=== PATIENT | male | born 1960 | race Caucasian/White ===

== ENCOUNTER 2019-10-28 23:17 | Emergency (ER) | payer OTHER ==
[2019-10-28] MEDS ORDERED: Sodium Chloride 0.9% 10 ML Syringe FLUSH PRN (23:33)
[2019-10-28] MEDS ORDERED: Sodium Chloride 0.9% 1,000 ML IV SCH (23:45)
--- NOTE | 2019-10-29 00:15 | EDM.PDOC ---
ED HPI GENERAL MEDICAL PROBLEM - General Chief Complaint: Abdominal Pain Stated Complaint: SIDE PAIN Time Seen by Provider: 10/28/19 23:28 Source of Information: Reports: Patient History Limitations: Reports: No Limitations - History of Present Illness INITIAL COMMENTS - FREE TEXT/NARRATIVE: The patient presents with right flank and right abdominal pain. This all started on Saturday. He was shoveling grain before and he thought he strained his back. He went to see Dr Reinoso and he put him on some naprosyn and flexeril. He has not gotten any better. He has pain to the right lower abdomen now. He has been taking his temp and his temp has been creeping up. He has no cough, congestion, runny nose, chest pain, shortness of breath, dysuria, hematuria or diarrhea. He still has his appendix and gallbladder. Onset: Gradual Duration: Day(s): Location: Reports: Abdomen, Back Quality: Reports: Sharp Severity: Moderate Improves with: Reports: None Worsens with: Reports: None Associated Symptoms: Denies: Chest Pain, Cough, Fever/Chills, Headaches, Nausea/ Vomiting, Shortness of Breath Right Lower Abdomen Pain Score (Numeric/FACES): 5 - Related Data Allergies Allergy/AdvReac Type Severity Reaction Status Date / Time oxycodone Allergy Nausea and Verified 10/28/19 23:39 Vomiting Past Medical History Musculoskeletal History: Reports: Fracture, Other (See Below) Other Musculoskeletal History: bila ankles, shoulder - Past Surgical History Musculoskeletal Surgical History: Reports: Shoulder Surgery Social & Family History - Tobacco Use Smoking Status *Q: Never Smoker Second Hand Smoke Exposure: No - Caffeine Use Caffeine Use: Reports: Coffee - Recreational Drug Use Recreational Drug Use: No ED ROS GENERAL - Review of Systems Review Of Systems: See Below Constitutional: Reports: No Symptoms HEENT: Reports: No Symptoms Respiratory: Reports: No Symptoms Cardiovascular: Reports: No Symptoms Endocrine: Reports: No Symptoms GI/Abdominal: Reports: Abdominal Pain. Denies: Nausea, Vomiting : Reports: Flank Pain ED EXAM, GI/ABD - Physical Exam Exam: See Below Exam Limited By: No Limitations General Appearance: Alert, No Apparent Distress Ears: Normal External Exam Nose: Normal Inspection Head: Atraumatic, Normocephalic Neck: Normal Inspection Respiratory/Chest: No Respiratory Distress, Lungs Clear, Normal Breath Sounds Cardiovascular: Regular Rate, Rhythm, No Edema, No Murmur GI/Abdominal Exam: Soft, Non-Tender, No Organomegaly, No Mass Back Exam: Normal Inspection Extremities: Normal Inspection Course - Vital Signs Last Recorded V/S: Last Vital Signs Temp 98.7 F 10/28/19 23:33 Pulse 80 10/28/19 23:33 Resp 20 10/28/19 23:33 BP 138/96 H 10/28/19 23:33 Pulse Ox 97 10/28/19 23:33 - Orders/Labs/Meds Orders: Active Orders 24 hr Category Date Time Status Peripheral IV Care [RC] . DIRECTED Care 10/28/19 23:34 Active Abdomen Pelvis w Cont [CT] Stat Exams 10/29/19 01:01 Taken Abdomen Pelvis wo Cont [CT] Stat Exams 10/28/19 23:33 Taken CULTURE BLOOD [BC] Stat Lab 10/29/19 01:15 Received CULTURE BLOOD [BC] Stat Lab 10/29/19 01:25 Received CULTURE URINE [RM] Stat Lab 10/29/19 00:09 Received Piperacillin/Tazobactam [Piperacil-Tazobact] 4.5 gm Med 10/29/19 03:15 Active Sodium Chloride 0.9% [Normal Saline] 100 ml IV ONETIME Sodium Chloride 0.9% [Normal Saline] 1,000 ml Med 10/28/19 23:45 Active IV ASDIRECTED Sodium Chloride 0.9% [Saline Flush] Med 10/28/19 23:33 Active 10 ml FLUSH ASDIRECTED PRN Blood Culture x2 Reflex Set [OM.PC] Stat Oth 10/29/19 01:01 Ordered Peripheral IV Insertion Adult [OM.PC] Stat Oth 10/28/19 23:33 Ordered Medication Orders Sodium Chloride (Normal Saline) 1,000 mls @ 125 mls/hr IV ASDIRECTED KATIA Last Admin: 10/28/19 23:48 Dose: 125 mls/hr Piperacillin Sod/Tazobactam (Sod 4.5 gm/ Sodium Chloride) 100 mls @ 25 mls/hr IV ONETIME ONE Stop: 10/29/19 07:14 Sodium Chloride (Saline Flush) 10 ml FLUSH ASDIRECTED PRN PRN Reason: Keep Vein Open Last Admin: 10/28/19 23:49 Dose: 10 ml Labs: Laboratory Tests 10/28/19 10/28/19 10/29/19 Range/Units 23:45 23:45 00:09 WBC 10.16 H (4.23-9.07) K/mm3 RBC 4.12 L (4.63-6.08) M/mm3 Hgb 12.4 L (13.7-17.5) gm/dl Hct 37.4 L (40.1-51.0) % MCV 90.8 (79.0-92.2) fl MCH 30.1 (25.7-32.2) pg MCHC 33.2 (32.2-35.5) g/dl RDW Std Deviation 43.0 (35.1-43.9) fL Plt Count 189 (163-337) K/mm3 MPV 11.3 (9.4-12.3) fl Neut % (Auto) 67.2 (34.0-67.9) % Lymph % (Auto) 15.6 L (21.8-53.1) % Wood % (Auto) 14.4 H (5.3-12.2) % Eos % (Auto) 2.5 (0.8-7.0) Baso % (Auto) 0.1 (0.1-1.2) % Neut # (Auto) 6.84 H (1.78-5.38) K/mm3 Lymph # (Auto) 1.58 (1.32-3.57) K/mm3 Wood # (Auto) 1.46 H (0.30-0.82) K/mm3 Eos # (Auto) 0.25 (0.04-0.54) K/mm3 Baso # (Auto) 0.01 (0.01-0.08) K/mm3 Manual Slide Review Abnormal smear Sodium 139 (136-145) mEq/L Potassium 4.0 (3.5-5.1) mEq/L Chloride 105 (98-107) mEq/L Carbon Dioxide 26 (21-32) mEq/L Anion Gap 12.0 (5-15) BUN 15 (7-18) mg/dL Creatinine 1.3 (0.7-1.3) mg/dL Est Cr Clr Drug Dosing 57.73 mL/min Estimated GFR (MDRD) 56 (>60) mL/min BUN/Creatinine Ratio 11.5 L (14-18) Glucose 106 (80-115) mg/dL Lactic Acid (0.4-2.0) mmol/L Calcium 8.6 (8.5-10.1) mg/dL Total Bilirubin 0.5 (0.2-1.0) mg/dL AST 15 (15-37) U/L ALT 23 (16-63) U/L Alkaline Phosphatase 82 (46-116) U/L Total Protein 6.4 (6.4-8.2) g/dl Albumin 2.9 L (3.4-5.0) g/dl Globulin 3.5 gm/dL Albumin/Globulin Ratio 0.8 L (1-2) Lipase 650 H (73-393) U/L Urine Color Light yellow (Yellow) Urine Appearance Clear (Clear) Urine pH 6.5 (5.0-8.0) Ur Specific [place] 1.020 (1.005-1.030) Urine Protein 1+ H (Negative) Urine Glucose (UA) Negative (Negative) Urine Ketones Negative (Negative) Urine Occult Blood 2+ H (Negative) Urine Nitrite Negative (Negative) Urine Bilirubin Negative (Negative) Urine Urobilinogen 2.0 H (0.2-1.0) Ur Leukocyte Esterase Trace H (Negative) U Hyaline Cast (Auto) 0-5 (0-5) /lpf Urine RBC 5-10 H (0-5) /hpf Urine WBC 5-10 H (0-5) /hpf Ur Epithelial Cells Not seen (0-5) /hpf Urine Bacteria Few (FEW) /hpf Urine Mucus Few (FEW) /hpf 10/29/19 Range/Units 01:25 WBC (4.23-9.07) K/mm3 RBC (4.63-6.08) M/mm3 Hgb (13.7-17.5) gm/dl Hct (40.1-51.0) % MCV (79.0-92.2) fl MCH (25.7-32.2) pg MCHC (32.2-35.5) g/dl RDW Std Deviation (35.1-43.9) fL Plt Count (163-337) K/mm3 MPV (9.4-12.3) fl Neut % (Auto) (34.0-67.9) % Lymph % (Auto) (21.8-53.1) % Wood % (Auto) (5.3-12.2) % Eos % (Auto) (0.8-7.0) Baso % (Auto) (0.1-1.2) % Neut # (Auto) (1.78-5.38) K/mm3 Lymph # (Auto) (1.32-3.57) K/mm3 Wood # (Auto) (0.30-0.82) K/mm3 Eos # (Auto) (0.04-0.54) K/mm3 Baso # (Auto) (0.01-0.08) K/mm3 Manual Slide Review Sodium (136-145) mEq/L Potassium (3.5-5.1) mEq/L Chloride (98-107) mEq/L Carbon Dioxide (21-32) mEq/L Anion Gap (5-15) BUN (7-18) mg/dL Creatinine (0.7-1.3) mg/dL Est Cr Clr Drug Dosing mL/min Estimated GFR (MDRD) (>60) mL/min BUN/Creatinine Ratio (14-18) Glucose (80-115) mg/dL Lactic Acid 0.6 (0.4-2.0) mmol/L Calcium (8.5-10.1) mg/dL Total Bilirubin (0.2-1.0) mg/dL AST (15-37) U/L ALT (16-63) U/L Alkaline Phosphatase (46-116) U/L Total Protein (6.4-8.2) g/dl Albumin (3.4-5.0) g/dl Globulin gm/dL Albumin/Globulin Ratio (1-2) Lipase (73-393) U/L Urine Color (Yellow) Urine Appearance (Clear) Urine pH (5.0-8.0) Ur Specific [place] (1.005-1.030) Urine Protein (Negative) Urine Glucose (UA) (Negative) Urine Ketones (Negative) Urine Occult Blood (Negative) Urine Nitrite (Negative) Urine Bilirubin (Negative) Urine Urobilinogen (0.2-1.0) Ur Leukocyte Esterase (Negative) U Hyaline Cast (Auto) (0-5) /lpf Urine RBC (0-5) /hpf Urine WBC (0-5) /hpf Ur Epithelial Cells (0-5) /hpf Urine Bacteria (FEW) /hpf Urine Mucus (FEW) /hpf Meds: Medications Generic Name Dose Route Start Last Admin Trade Name Freq PRN Reason Stop Dose Admin Sodium Chloride 1,000 mls @ 125 mls/hr 10/28/19 23:45 10/28/19 23:48 Normal Saline IV 125 mls/hr ASDIRECTED KATIA Administration Piperacillin Sod/Tazobactam 100 mls @ 25 mls/hr 10/29/19 03:15 Sod 4.5 gm/ Sodium Chloride IV 10/29/19 07:14 ONETIME ONE Sodium Chloride 10 ml 10/28/19 23:33 10/28/19 23:49 Saline Flush FLUSH 10 ml ASDIRECTED PRN Administration Keep Vein Open - Re-Assessments/Exams Free Text/Narrative Re-Assessment/Exam: 10/29/19 00:15 I ordered an IV NS at 125ml/hr, labs, UA and a CT of his abdomen and pelvis without contrast. 10/29/19 03:09 His WBC was elevated at 10.16. His CMP is negative. His lipase is elevated at 650. His UA shows leukocyte esterase, RBCs, WBCs and few bacteria. 10/29/19 03:[address] shows mild right hydronephrosis. No obstructing renal or ureteral stone is identified. Right pyelitis. Findings could be consistent with recently passed stone versus infection or a noncalcified obstructing ureteral/UVJ lesion/ stricture. Recommend clinical correlation and correlation with urinalysis/ culture. Right perinephric stranding. Increased stranding/density around the right renal pelvis. Finding can represent sequela prior obstruction or previous /current infection. Recommend further evaluation with IV contrast with nephrographic and delayed excretory images. Possible fluid tracking along the right psoas muscle with possible right psoas infection/abscess. Further evaluation with IV contrast. No CT findings of acute appendicitis. Colonic diverticulosis without Ct findings of acute diverticulitis. I ordered urine culture, blood cultures, lactic acid, rocephin 2 grams IV and a CT with IV contrast. The IV contrast CT shows wedge-shaped regions of decreased right renal upper pole cortical attenuation with associated perinephric stranding. Findings likely consistent with acute pyelonephritis. Right pyelitis/ureteritis. Edema/ stranding around the right renal pelvis. Right retroperitoneal abscess anterior to the right psoas muscle extending from the level of L2 to L4. It measures 2.7 X 1[address] findings of acute appendicitis. Incomplete urinary bladder distention with prominent wall. Correlation with urinalysis for cystitis. Additional nonemergent CT findings above. I called [facility] in [place] and talked with the hospitalist Dr Price and he accepted the patient. He did want some zosyn started so I ordered that. 10/29/19 03:33 The patient did tell me that he got knocked over by a cow a few weeks ago. His back hurt after that. He was feeling better before this started. Departure - Departure Time of Disposition: 03:35 Disposition: DC/Tfer to Acute Hospital 02 Condition: Fair Clinical Impression: Pyelonephritis, Pyelitis, Ureteritis, Retroperitoneal abscess UTI (urinary tract infection) Qualifiers: Urinary tract infection type: acute cystitis Hematuria presence: without hematuria Qualified Code(s): N30.00 - Acute cystitis without hematuria Pancreatitis Qualifiers: Chronicity: acute Pancreatitis type: other Acute pancreatitis complication: no infection or necrosis Qualified Code(s): K85.80 - Other acute pancreatitis without necrosis or infection - Discharge Information Referrals: Mickey Jameson MD [Primary Care Provider] - Forms: ED Department Discharge Sepsis Event Note - Evaluation Sepsis Screening Result: No Definite Risk - Focused Exam Vital Signs: Vital Signs Temp Pulse Resp BP Pulse Ox 10/28/19 23:33 98.7 F 80 20 138/96 H 97 Date Exam was Performed: 10/29/19 Time Exam was Performed: 03:22 - My Orders Last 24 Hours: My Active Orders 10/28/19 23:33 Abdomen Pelvis wo Cont [CT] Stat Sodium Chloride 0.9% [Saline Flush] 10 ml FLUSH ASDIRECTED PRN Peripheral IV Insertion Adult [OM.PC] Stat 10/28/19 23:34 Peripheral IV Care [RC] . DIRECTED 10/28/19 23:45 Sodium Chloride 0.9% [Normal Saline] 1,000 ml IV ASDIRECTED 10/29/19 00:09 CULTURE URINE [RM] Stat 10/29/19 01:01 Abdomen Pelvis w Cont [CT] Stat Blood Culture x2 Reflex Set [OM.PC] Stat 10/29/19 01:15 CULTURE BLOOD [BC] Stat 10/29/19 01:25 CULTURE BLOOD [BC] Stat 10/29/19 03:15 Piperacillin/Tazobactam [Piperacil-Tazobact] 4.5 gm Sodium Chloride 0.9% [ Normal Saline] 100 ml IV ONETIME - Assessment/Plan Last 24 Hours: My Active Orders 10/28/19 23:33 Abdomen Pelvis wo Cont [CT] Stat Sodium Chloride 0.9% [Saline Flush] 10 ml FLUSH ASDIRECTED PRN Peripheral IV Insertion Adult [OM.PC] Stat 10/28/19 23:34 Peripheral IV Care [RC] . DIRECTED 10/28/19 23:45 Sodium Chloride 0.9% [Normal Saline] 1,000 ml IV ASDIRECTED 10/29/19 00:09 CULTURE URINE [RM] Stat 10/29/19 01:01 Abdomen Pelvis w Cont [CT] Stat Blood Culture x2 Reflex Set [OM.PC] Stat 10/29/19 01:15 CULTURE BLOOD [BC] Stat 10/29/19 01:25 CULTURE BLOOD [BC] Stat 10/29/19 03:15 Piperacillin/Tazobactam [Piperacil-Tazobact] 4.5 gm Sodium Chloride 0.9% [ Normal Saline] 100 ml IV ONETIME
[2019-10-29] MEDS ORDERED: Piperacillin/Tazobactam 4.5 GM in Sodium Chloride 0.9% 100 ML IV ONE (03:15)
--- NOTE | 2019-10-29 08:14 | CT ---
CT abdomen and pelvis Technique: Multiple axial sections were obtained from above the dome of the diaphragm inferiorly through the pubic symphysis. Intravenous and oral contrast not utilized. Study performed as a ureteral stone protocol. Findings: Inflammatory change is identified around the right kidney. Collecting system of the right kidney is slightly prominent. No ureteral dilatation or ureteral stone is seen. No bladder calculi are in. No calcification is seen within either kidney. Hypodense fluid type material seen along the psoas muscle on the right side. Slight atelectasis is noted within the right lung base. Liver shows no focal abnormality. Spleen appears within normal limits. Adrenal glands show no nodule. Pancreas is within normal limits. Gallbladder contains no calcified gallstones. Aorta shows no aneurysm. No retroperitoneal adenopathy or mesenteric abnormalities are seen. Appendix is seen which is normal. No pelvic mass or adenopathy is seen. Bone window settings were reviewed which shows scattered degenerative change within the spine without acute osseous finding being seen. Impression: 1. Inflammatory change around the right kidney most likely due to pyelonephritis since no ureteral stone is seen. Collecting system of the right kidney is slightly prominent most likely relating to stasis from infection. 2. Small amount of fluid along the right psoas muscle and difficult to exclude infection. 3. Other findings believed to be nonacute as noted above. Diagnostic code #3 Agree with preliminary report issued by [facility] ([facility] preliminary report dictated on 10/29/19, 1:34 AM Central Time) Study was dictated in MDT
--- NOTE | 2019-10-29 08:14 | CT ---
CT abdomen and pelvis Technique: Multiple axial sections were obtained from above the dome of the diaphragm inferiorly through the pubic symphysis. Intravenous contrast was utilized. Delayed images were also obtained through the abdomen and pelvis. Comparison: Previous CT abdomen and pelvis study performed as a noncontrast exam with a date of 10/28/19. Findings: Mild right basilar atelectasis is noted. Liver contains no focal abnormality. Spleen appears within normal limits. Gallbladder contains no calcified gallstones. Pancreas shows no abnormality. Adrenal glands show no nodule. Aorta shows no aneurysm. No retroperitoneal adenopathy is seen. Bladder is slightly thick-walled which is believed to be due to under distention since bladder wall appears more normal on earlier study when better distended. Slightly diminished enhancement of the right kidney is seen as compared to the left kidney believed to represent changes of pyelonephritis. Inflammatory change is also noted around the right kidney compatible with pyelonephritis. Right sided collecting system is mildly prominent. This is most likely due to stasis from infection. Delayed images shows contrast throughout the ureters with no ureteral obstruction. Bladder shows contrast on delayed images. Fluid collection is seen along the lateral side of the psoas muscle on the right side. This fluid collection has a length of 6.7 cm with thickness of approximately 1 cm. Differential includes small urinoma versus small abscess. Left kidney shows no abnormality. Appendix is seen and is normal. Bony structures remain unchanged from previous study. Impression: 1. Findings compatible with right-sided pyelonephritis. Mild dilatation of the collecting system of the right kidney compatible with stasis from infection. 2. Small urinoma versus small abscess along the right psoas muscle with measurements as noted above. 3. No other acute findings are seen on CT study of the abdomen and pelvis performed with contrast. Diagnostic code #3 Agree with preliminary report issued by [facility] ([facility] preliminary report dictated on 10/29/19, 3:54 AM Central Time) Study was dictated in MDT
== END 2019-10-29 03:45 ==
LOC: JD.ED 23:17
DX: N12 Tubulo-interstitial nephritis, not specified as acute or chronic (principal); N30.00 Acute cystitis without hematuria; K68.19 Other retroperitoneal abscess; K85.80 Other acute pancreatitis without necrosis or infection; Z88.5 Allergy status to narcotic agent
CPT/HCPCS: 36415; 74176; 74177; 80053; 81001; 83605; 83690; 85025; 87040; 87086; 96361; 96374; 99285; J2543; J7030; J7050; 99284

== ENCOUNTER 2021-07-08 20:11 | Emergency (ER) | payer OTHER ==
--- NOTE | 2021-07-08 20:47 | EDM.PDOC ---
ED HPI GENERAL MEDICAL PROBLEM - General Chief Complaint: Respiratory Problem Stated Complaint: COUGH/SOB Time Seen by Provider: 07/08/21 20:32 Source of Information: Reports: Patient, RN Notes Reviewed - History of Present Illness INITIAL COMMENTS - FREE TEXT/NARRATIVE: 61 yr old male with onset of covid sx about 9 days ago. Has tested postive. Had antibody infusion yesterday. Feels more weak, low energy, dypnea with exertion. Has had some diarrhea the past 2 days. Feels dehydrated. Unvaccinated. Treatments CROP NUTRITION SCIENTIST: Reports: Other (see below) Other Treatments CROP NUTRITION SCIENTIST: none Throat Pain Score (Numeric/FACES): 4 Headache Pain Score (Numeric/FACES): 3 Generalized Pain Score (Numeric/FACES): 5 - Related Data Allergies Allergy/AdvReac Type Severity Reaction Status Date / Time oxycodone Allergy Severe Nausea and Verified 07/08/21 20:38 Vomiting Home Meds: Home Meds . [No Known Home Meds] 07/08/21 [History] Past Medical History Musculoskeletal History: Reports: Fracture, Other (See Below) Other Musculoskeletal History: bila ankles, shoulder - Infectious Disease History Infectious Disease History: Reports: None - Past Surgical History GI Surgical History: Reports: Colonoscopy Musculoskeletal Surgical History: Reports: Shoulder Surgery, Other (See Below) Other Musculoskeletal Surgeries/Procedures:: fractured pelvis Social & Family History - Caffeine Use Caffeine Use: Reports: Coffee ED ROS GENERAL - Review of Systems Review Of Systems: See Below Constitutional: Reports: Fever (lwo grade), Chills, Fatigue, Decreased Appetite HEENT: Reports: No Symptoms Respiratory: Reports: Shortness of Breath, Cough Cardiovascular: Denies: Chest Pain GI/Abdominal: Reports: Diarrhea, Decreased Appetite. Denies: Abdominal Pain Musculoskeletal: Reports: Other (achiness) Skin: Denies: Rash Neurological: Reports: Dizziness, Headache ED EXAM, GENERAL - Physical Exam Exam: See Below General Appearance: Alert, No Apparent Distress Head: Atraumatic Neck: Supple Respiratory/Chest: No Respiratory Distress, Lungs Clear, Normal Breath Sounds. No: Rhonchi, Wheezing Cardiovascular: Regular Rate, Rhythm Extremities: No Pedal Edema. No: Leg Pain Neurological: Alert, Oriented, No Motor/Sensory Deficits Skin Exam: Warm, Dry, Normal Color Course - Vital Signs Last Recorded V/S: Last Vital Signs Temp 99.6 F 07/08/21 20:48 Pulse 75 07/08/21 20:48 Resp 20 07/08/21 20:48 BP 122/81 07/08/21 20:48 Pulse Ox 96 07/08/21 20:48 - Orders/Labs/Meds Orders: Active Orders 24 hr Category Date Time Status Peripheral IV Care [RC] . DIRECTED Care 07/08/21 21:06 Active Chest 1V Frontal [CR] Stat Exams 07/08/21 20:57 Taken Sodium Chloride 0.9% [Normal Saline] 1,000 ml Med 07/08/21 21:15 Active IV ONETIME Sodium Chloride 0.9% [Saline Flush] Med 07/08/21 21:05 Active 10 ml FLUSH ASDIRECTED PRN Peripheral IV Insertion Adult [OM.PC] Stat Oth 07/08/21 21:05 Ordered Medication Orders Sodium Chloride (Normal Saline) 1,000 mls @ 999 mls/hr IV ONETIME KATIA Last Admin: 07/08/21 21:20 Dose: 999 mls/hr Documented by: MINGO Sodium Chloride (Sodium Chloride 0.9% 10 Ml Syringe) 10 ml FLUSH ASDIRECTED PRN PRN Reason: Keep Vein Open Last Admin: 07/08/21 21:20 Dose: 10 ml Documented by: MINGO Labs: Laboratory Tests 07/08/21 07/08/21 07/08/21 Range/Units 21:10 21:10 21:10 WBC 5.86 (4.23-9.07) K/mm3 RBC 4.94 (4.63-6.08) M/mm3 Hgb 14.4 D (13.7-17.5) gm/dl Hct 43.9 (40.1-51.0) % MCV 88.9 (79.0-92.2) fl MCH 29.1 (25.7-32.2) pg MCHC 32.8 (32.2-35.5) g/dl RDW Std Deviation 42.7 (35.1-43.9) fL Plt Count 137 L (163-337) K/mm3 MPV 11.1 (9.4-12.3) fl Neut % (Auto) 63.9 (34.0-67.9) % Lymph % (Auto) 22.4 (21.8-53.1) % [place] % (Auto) 12.8 H (5.3-12.2) % Eos % (Auto) 0.2 L (0.8-7.0) Baso % (Auto) 0.5 (0.1-1.2) % Neut # (Auto) 3.75 (1.78-5.38) K/mm3 Lymph # (Auto) 1.31 L (1.32-3.57) K/mm3 [place] # (Auto) 0.75 (0.30-0.82) K/mm3 Eos # (Auto) 0.01 L (0.04-0.54) K/mm3 Baso # (Auto) 0.03 (0.01-0.08) K/mm3 Manual Slide Review Sodium 138 (136-145) mEq/L Potassium 4.3 (3.5-5.1) mEq/L Chloride 102 (98-107) mEq/L Carbon Dioxide 30 (21-32) mEq/L Anion Gap 10.3 (5-15) BUN 13 (7-18) mg/dL Creatinine 1.2 (0.7-1.3) mg/dL Est Cr Clr Drug Dosing 60.96 mL/min Estimated GFR (MDRD) > 60 (>60) mL/min BUN/Creatinine Ratio 10.8 L (14-18) Glucose 118 H (70-99) mg/dL Calcium 8.1 L (8.5-10.1) mg/dL Total Bilirubin 0.6 (0.2-1.0) mg/dL AST 28 (15-37) U/L ALT 26 (16-63) U/L Alkaline Phosphatase 41 L (46-116) U/L C-Reactive Protein 9.4 H* (<1.0) mg/dL Total Protein 6.7 (6.4-8.2) g/dl Albumin 3.0 L (3.4-5.0) g/dl Globulin 3.7 gm/dL Albumin/Globulin Ratio 0.8 L (1-2) Meds: Medications Generic Name Dose Route Start Last Admin Trade Name Freq PRN Reason Stop Dose Admin Sodium Chloride 1,000 mls @ 999 mls/hr 07/08/21 21:15 07/08/21 21:20 Normal Saline IV 999 mls/hr ONETIME KATIA Administration Sodium Chloride 10 ml 07/08/21 21:05 07/08/21 21:20 Sodium Chloride 0.9% 10 Ml Syringe FLUSH 10 ml ASDIRECTED PRN Administration Keep Vein Open - Re-Assessments/Exams Free Text/Narrative Re-Assessment/Exam: 07/08/21 21:48 CXR show very small probable R lower lateral lung infiltrate. Lungs ramos otherwise look pretty clear. sats are good, in the 96 % range. Departure - Departure Time of Disposition: 23:00 Disposition: Home, Self-Care 01 Condition: Fair Clinical Impression: Pneumonia due to COVID-19 virus - Discharge Information Instructions: COVID-19, Community-Acquired Pneumonia, Adult, [id number] Referrals: Mickey Jameson MD [Primary Care Provider] - Forms: ED Department Discharge, ED Return to Work/School Form Additional Instructions: You CXR shows a small area of probable pneumonia R lower lung field. Your lungs otherwise are clear. Symptoms should start slowly getting better day by day. Probiotic twice daily will help the diarrhea. Return to ED for any severe breathing difficulty, or otherwise as needed. Sepsis Event Note (ED) - Focused Exam Vital Signs: Vital Signs Temp Pulse Resp BP Pulse Ox 07/08/21 20:48 99.6 F 75 20 122/81 96 - My Orders Last 24 Hours: My Active Orders 07/08/21 20:57 Chest 1V Frontal [CR] Stat 07/08/21 21:05 Sodium Chloride 0.9% [Saline Flush] 10 ml FLUSH ASDIRECTED PRN Peripheral IV Insertion Adult [OM.PC] Stat 07/08/21 21:06 Peripheral IV Care [RC] . DIRECTED 07/08/21 21:15 Sodium Chloride 0.9% [Normal Saline] 1,000 ml IV ONETIME - Assessment/Plan Last 24 Hours: My Active Orders 07/08/21 20:57 Chest 1V Frontal [CR] Stat 07/08/21 21:05 Sodium Chloride 0.9% [Saline Flush] 10 ml FLUSH ASDIRECTED PRN Peripheral IV Insertion Adult [OM.PC] Stat 07/08/21 21:06 Peripheral IV Care [RC] . DIRECTED 07/08/21 21:15 Sodium Chloride 0.9% [Normal Saline] 1,000 ml IV ONETIME
[2021-07-08] MEDS ORDERED: Sodium Chloride 0.9% 10 ML Syringe FLUSH PRN (21:05)
[2021-07-08] MEDS ORDERED: Sodium Chloride 0.9% 1,000 ML IV SCH (21:15)
--- NOTE | 2021-07-09 08:00 | CR ---
Chest: Frontal view of the chest was obtained. Comparison: No prior chest imaging is available. Heart size and mediastinum are normal. Minimal density is seen within the left base most likely representing atelectasis. Lungs otherwise are clear. Bony structures show nothing acute. Impression: 1. Probable atelectasis within the left lung base. 2. Nothing acute is otherwise appreciated on frontal chest x-ray. Diagnostic code #2
== END 2021-07-08 23:33 | disposition home or self-care (01) ==
LOC: JD.ED 20:11
DX: U07.1 COVID-19 (principal); J12.82 Pneumonia due to coronavirus disease 2019; Z88.5 Allergy status to narcotic agent
CPT/HCPCS: 36415; 71045; 80053; 85025; 86140; 99285; J7030; 99284